=== PATIENT | male | born 1950 | race African-American/Black ===

== ENCOUNTER 2018-01-21 13:54 | Emergency (ER) | payer SELFPAY ==
--- NOTE | 2018-01-21 14:30 | PDOC ---
History of Present Illness - General Chief Complaint: Psychiatric Stated Complaint: Psychiatric Time Seen by Provider: 01/21/18 14:22 History Source: Care Provider, EMS Exam Limitations: Dementia - History of Present Illness Initial Comments: 01/21/18 14:24 67y M hx of anxiety, schizophrnia, dementia, presents from [facility] for nursing and rehab, was suppose to be transferredto psych ER at [facility], but was inadvertently transferred to [facility] (on paperwork, they wrote [facility] Psych ER), ALFIE Abbasi had discussed with Staff from [facility] who confirmed that they made a mistake and wrote [facility] rather than [facility] and pt was intended for [facility]. Per paperwork pt was exhibiting exit seeking behavior at [facility] and psych recommended psych eval and possible demntia unit placement Here pt is AOx2 no complaints of pain or discomfort only wants to leave. vitals stable Discussed with Dr. Paniagua (PSych at [facility]) will accept the pt to [facility] for further evaluation. will defer further evaluation and workup here in anticipate of psych eval. Past History - Past Medical History Allergies/Adverse Reactions: Allergies Allergy/AdvReac Type Severity Reaction Status Date / Time No Known Allergies Allergy Verified 01/21/18 14:07 Home Medications: Ambulatory Orders Acetaminophen [Tylenol] 650 mg PO QID PRN 01/21/18 Brimonidine Tartrate [Alphagan 0.15% -] 1 drop OD BID 01/21/18 Cholecalciferol (Vitamin D3) [Vitamin D3] 1,000 unit PO DAILY 01/21/18 Donepezil HCl 10 mg PO DAILY 01/21/18 Latanoprost/Pf [Latanoprost 0.005% Eye Drop] 1 drop OU HS 01/21/18 Magnesium Hydroxide [Milk of Magnesia] 30 ml PO DAILY PRN 01/21/18 Mirtazapine [Remeron -] 15 mg PO DAILY 01/21/18 Quetiapine Fumarate [Seroquel] 100 tab PO BID 01/21/18 Timolol 0.25% [Timoptic 0.25%] 0 ml OU BID 01/21/18 Valproic Acid (As Sodium Salt) [Valproic Acid] 500 mg PO BID 01/21/18 Anemia: No Asthma: No Cancer: No Cardiac Disorders: No CVA: No COPD: No CHF: No Dementia: No Diabetes: No GI Disorders: No Disorders: No HTN: No Hypercholesterolemia: No Kidney Stones: No Liver Disease: No Seizures: No Thyroid Disease: No - Reproductive History Testicular Surgery: No - Suicide/Smoking/Psychosocial Hx Smoking History: Current every day smoker Have you smoked in the past 12 months: Yes Number of Cigarettes Smoked Daily: 10 'Breaking Loose' booklet given: 06/06/13 Hx Alcohol Use: Yes (first episode of treatment) Drug/Substance Use Hx: No Substance Use Type: Alcohol Hx Substance Use Treatment: No Review of Systems - Review of Systems Able to Perform ROS?: Yes Comments:: Psych: denies SI/HI Card: denies chest pain, sob Genera: denies fever/chills Abd: denies n/v, abd pain *Physical Exam - Physical Exam Comments: GENERAL: The patient is awake, alert, Nontoxic - in no acute distress. HEAD: Normocephalic, atraumatic. EYES: extraocular movements intact, sclera anicteric, conjunctiva clear. NEUROLOGICAL: No facial assymetry, Normal speech, PSYCH: Normal mood, normal affect, denies SI/HI SKIN: Warm, Dry, normal turgor, *DC/Admit/Observation/Transfer Diagnosis at time of Disposition: Schizophrenia Qualifiers: Schizophrenia type: other Qualified Code(s): F20.89 - Other schizophrenia Dementia Qualifiers: Dementia type: unspecified type Dementia behavioral disturbance: without behavioral disturbance Qualified Code(s): F03.90 - Unspecified dementia without behavioral disturbance - Discharge Dispostion Disposition: TRANSFER ACUTE CARE/OTHER HOSP Condition at time of disposition: Stable Decision to Admit order: No - Referrals - Patient Instructions - Post Discharge Activity - Transfer to Acute Care Facility Receiving Facility: [facility] Accepting Physician:: Dr. Paniagua
[2018-01-21 14:43] VITALS: BP 124/77; PULSE 77; TEMP 99.5; BMI 20.5
== END 2018-01-21 14:59 | disposition short-term general hospital (02) ==
LOC: JER 13:54
DX: F20.9 Schizophrenia, unspecified (principal); F41.9 Anxiety disorder, unspecified; F03.90 Unspecified dementia, unspecified severity, without behavioral disturbance, psychotic disturbance, mood disturbance, and anxiety; F17.210 Nicotine dependence, cigarettes, uncomplicated
CPT/HCPCS: 99283-25